=== PATIENT | male | born 1955 | race Caucasian/White ===

== ENCOUNTER 2019-02-15 07:58 | Emergency (ER) | payer MEDICAID ==
[~2019-02-15] VITALS: Ht 182.9 cm; Wt 109.1 kg
[2019-02-15 07:59] VITALS: BP 129/82
--- NOTE | 2019-02-15 09:06 | NUR ---
CHIARA FROM [employer] CALLED STATED WILL COME DOWN TO SEE PT AFTER 0900 ROUNDS.
[2019-02-15] MEDS ORDERED: oxyCODONE SR 10mg (sust. release) tab PO ONE (09:15)
[2019-02-15] MEDS ORDERED: oxyCODONE IR 5mg (immed. release) tablet PO ONE (09:15)
== END 2019-02-15 09:33 | disposition home or self-care (01) ==
LOC: ER 07:59
DX: M54.2 Cervicalgia (principal); G89.29 Other chronic pain; Z76.0 Encounter for issue of repeat prescription; I48.91 Unspecified atrial fibrillation; I10 Essential (primary) hypertension; E11.9 Type 2 diabetes mellitus without complications; F17.200 Nicotine dependence, unspecified, uncomplicated; F15.90 Other stimulant use, unspecified, uncomplicated; Z89.512 Acquired absence of left leg below knee; Z89.511 Acquired absence of right leg below knee; Z98.890 Other specified postprocedural states; Z59.0 Homelessness
CPT/HCPCS: 99284